=== PATIENT | male | born 2005 | race Caucasian/White ===

== ENCOUNTER 2024-09-10 22:34 | Emergency (ER) | payer OTHER, SELFPAY ==
[2024-09-10 22:44] VITALS: BP 116/69; PULSE 91; RESP 18; TEMP 36.5; O2SAT 98; BMI 25.0
[2024-09-10] MEDS: LIDOCAINE 1%-EPI 1:100,000 2 ML INFILTRATI (23:13)
--- NOTE | 2024-09-10 23:14 | ED.GENADULT ---
HPI - General Adult General Date Seen: 09/10/24 Chief complaint: Laceration/Wound Stated complaint: cut left elbow Time Seen by Provider: 09/10/24 22:57 History of Present Illness HPI narrative: Patient is a 19-year-old [employer] student who presents for evaluation of a cut in his left elbow. He was playing broom ball, slipped and fell backward. He did not know that he even hurt his arm until he noticed that it was bleeding. He does not have significant pain, he is able to move his elbow without difficulty. Immunizations up-to-date. He noted that it continued to bleed at home so he decided he should come in and be seen. Related Data Home Medications ?Medication ?Instructions ?Recorded ?Confirmed No Known Home Medications 09/10/24 09/10/24 Allergies Allergy/AdvReac Type Severity Reaction Status Date / Time No Known Drug Allergies Allergy Verified 09/10/24 22:46 Exam Narrative: Exam Narrative: Vital signs reviewed In general, alert, well-appearing young man. He is cooperative and pleasant. Extremities: Examination of the left elbow shows a 1 cm laceration over the olecranon. There is no significant hematoma, no swelling. Full range of motion of the elbow joint and no bony tenderness. Const: Vital Signs, click to edit/add: Vital Signs - 24 hr 09/10/24 22:44 Temperature 97.7 F Pulse Rate [Pulse Oximeter] 91 Respiratory Rate 18 Blood Pressure [Ri ght Upper Arm] 116/69 Pulse Oximetry 98 Oxygen Delivery Me thod Room Air Course Course ED Course: Procedure note: Wound was anesthetized with lidocaine with epinephrine. In probing it it does not seem to go significantly deep into the tissues. No visible foreign body, no apparent injury to deeper structures. I closed it using 4-0 nylon, a total of 3 simple interrupted superficial sutures were placed. He tolerated this well without immediate complication. Dressing applied by the nurse. Recommended suture removal in about 10 days. Return any time for signs of infection. Vital Signs Vital signs: Initial Vital Signs Temperature 97.7 F 09/10/24 22:44 Temperature Source Temporal Artery Scan 09/10/24 22:44 Pulse Rate 91 09/10/24 22:44 Pulse Rhythm Regular 09/10/24 22:44 Respiratory Rate 18 09/10/24 22:44 Blood Pressure 116/69 09/10/24 22:44 Blood Pressure Mean 84 09/10/24 22:44 Blood Pressure Position Sitting 09/10/24 22:44 Pulse Oximetry 98 09/10/24 22:44 Oxygen Delivery Method Room Air 09/10/24 22:44 Vital Signs Temperature 97.7 F 09/10/24 22:44 Pulse Rate 91 09/10/24 22:44 Respiratory Rate 18 09/10/24 22:44 Blood Pressure 116/69 09/10/24 22:44 Pulse Oximetry 98 09/10/24 22:44 Oxygen Delivery Method Room Air 09/10/24 22:44 Temperature 97.7 F 09/10/24 22:44 Pulse Rate 91 09/10/24 22:44 Respiratory Rate 18 09/10/24 22:44 Blood Pressure 116/69 09/10/24 22:44 Pulse Oximetry 98 09/10/24 22:44 Oxygen Delivery Method Room Air 09/10/24 22:44 Medications Administered Medications: Generic Name Dose Route Start Last Admin Trade Name Freq PRN Reason Stop Dose Admin Lidocaine/Epinephrine 2 ml 09/10/24 23:10 09/10/24 23:13 Lidocaine 1%-Epi 1:100,000 INFILTRATI 09/10/24 23:11 2 ml ONCE ONE Administration Discharge Plan Discharge Clinical Impression: Elbow laceration Patient Disposition: Home, Self-Care Condition: Improved Instructions: Laceration (DC) Additional Instructions: Your stitches should be taken out in about 10 days. If you notice increasing pain, swelling, redness, fevers or other signs of infection, you should have this rechecked. Otherwise, you can use ibuprofen or Tylenol if needed. Showering okay. Avoid swimming for 72 hours. Prescriptions: No Action No Known Home Medications Stand Alone Forms: MyHealth Info Instructions
--- OUTSIDE RECORDS SUMMARY | 2024-09-10 23:27 | XMS_ITS | Clinical Summary ---
Author Organization [facility] Address [place], [place] [address] Care Team Providers Care Online Marketing Director Name Role Phone Armani Woo MD Primary Care Provider + Allergies No known active allergies Medications multivitamin (MVI) tablet Take 1 Tablet by mouth once daily. 0 06/11/2023 Active ascorbic acid, vitamin C, (Vitamin C) 500 mg tablet Take 1 Tablet (500 mg) by mouth once daily. 0 06/11/2023 Active cyanocobalamin (Vitamin B-12) 1,000 mcg tablet Take 1 Tablet (1,000 mcg) by mouth once daily. 90 Tablet 3 06/11/2023 Active Magnesium 200 mg tab Take 1 Tablet (200 mg) by mouth once daily. 0 06/11/2023 Active cholecalciferol (Vitamin D-3) 2,000 unit capsuleIndicati ons:Vitamin D deficiency Take 1 Capsule (2,000 units) by mouth once daily. 90 Capsule 3 06/12/2023 Active Amnesteem 20 mg capsule TAKE 1 CAPSULE BY MOUTH EVERY DAY WITH FATTY MEAL. TAKE WITH 40MG FOR A TOTAL DOSE OF 140MG 12/24/2023 Active Amnesteem 40 mg capsule TAKE 3 CAPSULES BY MOUTH EVERY DAY WITH FATTY MEAL. TAKE WITH 20MG FOR A TOTAL DOSE OF 140MG 12/24/2023 Active Active Problems Problem Noted Date Diagnosed Date Vitamin D deficiency 06/12/2023 Overview (06/12/2023): VitD: 29.6 add 2000IU/day supplement Mixed hyperlipidemia 06/12/2023 Hypercalcemia 06/12/2023 Overview (06/12/2023): Calcium 10.4 05/2023 Check PTH with next labs. Health care maintenance 06/11/2023 Overview (06/12/2023): Last Physical: Est care 06/11/2023 Colonoscopy: Age 44 Prostate: PSA Age 39 KHADRA Carotid U/S: Age 64 Abd U/S for AAA: age 64 Testicular exam: circumcised, no masses, small left varicocele. 05/2023 Lipids: TC 144, TG 25, HDL 35, LDL 69 05/2023 ALT/AST: 39/31 05/2023 VitD: 29.6 05/2023 add 2000IU daily oral supplement B12: 1569 05/2023 HepC: Age 29 HIV: Age 29 NEXT VISIT: recheck Calcium and get PTH. Immunizations Name Administration Dates Next Due COVID-19 VACCINE SPIKEVAX (M ODERNA 50MCG/0.5ML) 12YO+ PFS 06/09/2023 COVID-19 vaccine (KivoBio NTech 30mcg/0.3mL) 12YO+ BIVALENT PF, MDV 06/07/2022 COVID-19 vaccine (KivoBio NTech 30mcg/0.3mL) PF, MDV 08/13/2021,12/22/2020,12/02/2020 DTaP 01/06/2008, 4,2004,03/11 DTaP-HIB (TriHIBIT) 04/05/2005 HIB-HepB (Comvax) 2004,2004 HPV 9 (Gardasil 9) 04/17/2017,06/19/2015, 015 Hepatitis A (Peds) 01/18/2007,01/11/2006 Hepatitis B (Peds) 2004 Inactivated Polio Vaccine 01/06/2008,,2004,03/11 Influenza A (H1N1), Inactivated 10/12/2009 Influenza, IIV3 (Age 6-35 mos) 06/04/2009 Influenza, IIV3 (Age >=3 years) 06/11/20 14,06/06/2013,06/07/2012,06/09,06/10/2010,06/25/2007,07/03/2006 ,06/15/2005,2004,2004 Influenza, IIV4 06/07/2022,04/28/2021,05/07/2020 Influenza, IIV4 (=>6mos) MDV 06/09/2023, 06/12/2019,06/19/2018,06/19 Influenza,CCIIV4 PRESERV FREE 06/14/2017 MMR 01/06/2008,01/12/2005 Meningococcal Vaccine (Menactra) 04/30/2020,03/27 Pneumococcal conj 7-Valent (Prevnar 7) 0 04/05/2005,2004,2004,03/11 Tdap 04/12/2015 Varicella Vaccine 01/06/2008,01/12/2005 meningococcal B, Recombinant 04/26/2022,04/29/20 21 Family History Medical History Relation Name Comments Good Health Brother Oli Asthma Father Eduardo Depression Father Eduardo Other Father Eduardo urinary retenti on Irritable bowel syndrome Mother Genie B12 def Cancer Paternal Grandfather Malignant Hypertension Paternal Grandfather Relation Name Status Comments Brother Oli Alive Father Eduardo Alive Maternal Grandfather Alive Maternal Grandmother Alive Mother Genie Alive Paternal Grandfather Alive Paternal Grandmother Alive Social History Tobacco Use Types Packs/Day Years Used Date Smoking Tobacco: Never Smokeless Tobacco: Never Tobacco Cessation:Counseling Given: Not Answered Alcohol Use Standard Drinks/Week Comments Yes 0 (1 standard drink = 0.6 oz pur e alcohol) rare PHQ-2 Answer Date Recorded PHQ-2 TOTAL SCORE 0 06/11/2023 Sex and Gender Information Value Date Recorded Sex Assigned at Not on file 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 Gender Identity Not on file Sexual Orientation Not on file Obstetrics History Last Filed Vital Signs Vital Sign Reading Time Taken Comments Blood Pressure 113/73 06/11/2023 1:00 PM CDT Pulse 92 06/11/2023 1:00 PM CDT Temperature 36.7 C (98.1 F) 12/20/2016 8:45 PM CDT Respiratory Rate 16 12/20/2016 8:45 PM CDT Oxygen Saturation 99% 12/20/2016 8:45 PM CDT Inhaled Oxygen Concentration - - Weight 95.4 kg (210 lb 6.4 oz) 06/11/2023 1:00 P M CDT Height 191 cm (6' 3.2) 06/11/2023 1:00 PM CDT Body Mass Index 26.16 06/11/2023 1:00 PM CDT Plan of Treatment Health Maintenance Due Date Last Done Comments Well Child Check for age 3-20 12/04/2006 HIV for age 15-65 01/03/2019 Hepatitis C screening for age 18-79 01/03/2022 COVID-19 vaccine series (2023- season) 2024 06/09/2023, 06/07/2022, 08/13/2021, Additional history exists Influenza for age 9-49 04/27/2024 , 06/07/2022, 04/28/2021, Additional history exists BMI (ht and wt on same day) for age 18+ 06/11/2024 06/11/2023 Depression screening for age 12+ 06/11/2024 06/11/2023 Tetanus booster 04/12/2025 04/12/2015 Pneumococcal series for age 6-49 Aged Out 04/05/2005, 2004, 2004, Additional history exists No longer eligible based on patient's age to complete this topic Tdap Completed 04/12/2015 HPV series for age 9-26 Completed 04/17/20 17, 06/19/2015, 04/12/2015 Meningococcal series for age 11-21 Completed 04/30/2020, 04/12/2015 Care Teams Online Marketing Director Relationship Specialty Start Date End Date Armani Woo MD [address] [place] [address] [place] [id number] PCP - General Internal Medicine 06/11/23
--- OUTSIDE RECORDS SUMMARY | 2024-09-10 23:27 | XMS_ITS | Referral Summary ---
Author Organization [facility] Address [address] [place] [id number] Care Team Providers Care Nutrition Tech Name Role Phone No Ref-Primary, Physician Primary Care Provider Allergies No known active allergies Medications No known medications Social History Tobacco Use Types Packs/Day Years Used Date Smoking Tobacco: Never Smokeless Tobacco: Never Alcohol Use Standard Drinks/Week Comments Not Currently 0 (1 standard drink = 0.6 oz pur e alcohol) Adolescent Education Answer Date Record ed Getting School Help Needed Not on file 05/31 Sex and Gender Information Value Date Recorded Sex Assigned at Not on file Legal Sex Male 3:28 PM CDT Gender Identity Not on file Sexual Orientation Not on file Last Filed Vital Signs Vital Sign Reading Time Taken Comments Blood Pressure 110/66 05/30/2023 3:43 PM CDT Pulse 64 05/30/2023 3:43 PM CDT Temperature 36.8 C (98.3 F) 05/30/2023 3:43 PM CDT Respiratory Rate 14 05/30/2023 3:43 PM CDT Oxygen Saturation 99% 05/30/2023 3:43 PM CDT Inhaled Oxygen Concentration - - Weight 96.2 kg (212 lb) 05/30/2023 3:43 PM CDT Height - - Body Mass Index - - Plan of Treatment Not on file Insurance [facility] [place] [id number] Care Teams Nutrition Tech Relationship Specialty Start Date End Date No Ref-Primary, Physician PCP - General 05/30/23
--- OUTSIDE RECORDS SUMMARY | 2024-09-10 23:27 | XMS_ITS | Clinical Summary ---
Author Organization [facility] Address [address] [place] [id number] Care Team Providers Care Summer Child Caregiver Name Role Phone No Ref-Primary, Physician Primary [...] Mass Index - - Plan of Treatment Health Maintenance Due Date Last Done Comments ADVANCE CARE PLANNING 2004 ANNUAL REVIEW OF HM ORDERS 2004 YEARLY PREVENTIVE VISIT 01/03/2007 HIV SCREENING 01/03/2019 HEPATITIS C SCREENING 01/03/2022 PHQ-2 (once per calendar year) 2023 COVID-19 Vaccine ( season) 2024 06/07/2022, 08/13/2021, 12/22/2020, Additional history exists INFLUENZA VACCINE (#1) 2024 , 04/28/2021, 05/07/2020, Additional history exists DTAP/TDAP/TD IMMUNIZATION (7 - Td or Tdap) 04/12/2025 04/12/2015, 01/06/2008, 04/05/2005, Additional history exists RSV VACCINE (1 - 1-dose 75+ series) 01/03/2079 HEPATITIS B IMMUNIZATION Completed 005, 2004, 2004 Pneumococcal Vaccine: Pediatrics (0 to 5 Years) and At-Risk Patients (6 to 49 Years) Aged Out 04/05/2005, 2004, 2004, Additional history exists No longer eligible based on patient's age to complete this topic HPV IMMUNIZATION Completed 04/17/2017, , 04/12/2015 MENINGITIS IMMUNIZATION Completed 04/30/2020, 04/12 MENINGITIS B IMMUNIZATION Completed 04/26/2022, 10/2020 RSV MONOCLONAL ANTIBODY Aged Out No l onger eligible based on patient's age to complete this topic Insurance [facility] [place] [id number] Care Teams Summer Child Caregiver Relationship Specialty Start Date End Date No Ref-Primary, Physician PCP - General 05/30/23
[2024-09-10 23:44] VITALS: BP 120/70; PULSE 89; RESP 18; TEMP 36.5; O2SAT 98
[2024-09-10 23:46] VITALS: BP 120/70; PULSE 89; RESP 18; TEMP 36.5
== END 2024-09-10 23:46 | disposition home or self-care (01) ==
LOC: ED 23:26
PROVIDERS: Emergency Provider Emergency Medicine
DX: S51.012A Laceration without foreign body of left elbow, initial encounter (principal); W01.0XXA Fall on same level from slipping, tripping and stumbling without subsequent striking against object, initial encounter; Y93.73 Activity, racquet and hand sports
CPT/HCPCS: 12001; 99283